=== PATIENT | male | born 1975 | race Caucasian/White ===

== ENCOUNTER 2017-05-20 12:53 | Emergency (ER) | payer OTHER ==
--- NOTE | 2017-05-20 13:24 | ER Document Report ---
ED Medical Screen (RME) - General Chief Complaint: Chest Pain Stated Complaint: BLOOD PRESSURE CONCERNS Time Seen by Provider: 05/20/17 13:22 Notes: Patient states that he woke up this morning with chest pain. It is left-sided. It has been constant. He states he went to urgent care and they did some EKGs and referred him here to the emergency department. He states he has no previous history of heart disease. No significant family history. He states he does not smoke. He does not have diabetes. Patient has never had a previous cardiac evaluation. He did take 3 aspirin today. TRAVEL OUTSIDE OF THE [place] IN LAST 30 DAYS: No - Related Data Allergies/Adverse Reactions: amoxicillin Allergy (Verified 05/20/17 12:59) Past Medical History - Social History Chew tobacco use (# tins/day): No Frequency of alcohol use: None Drug Abuse: None Pulmonary Medical History: Reports: Hx Asthma Renal/ Medical History: Denies: Hx Peritoneal Dialysis Physical Exam - Vital signs Vitals: Temp Pulse Resp BP Pulse Ox 97.9 F 81 20 159/104 H 99 05/20/17 12:59 05/20/17 12:59 05/20/17 12:59 05/20/17 12:59 05/20/17 12:59 Course - Vital Signs Vital signs: Temp Pulse Resp BP Pulse Ox 97.9 F 81 20 159/104 H 99 05/20/17 12:59 05/20/17 12:59 05/20/17 12:59 05/20/17 12:59 05/20/17 12:59
[2017-05-20 13:55] LABS: ABSOLUTE EOSINOPHILS # (AUTO) 0.2 10^3/uL (0.0-0.6); ABSOLUTE LYMPHOCYTES (AUTO) 1.7 10^3/uL (0.5-4.7); ABSOLUTE MONOCYTES (AUTO) 0.5 10^3/uL (0.1-1.4); ABSOLUTE NEUT (AUTO) 5.4 10^3/uL (1.7-8.2); BASOPHILS % (AUTO) 0.4 % (0-2); HEMATOCRIT 40.7 % (37.9-51.0); HEMOGLOBIN 14.3 g/dL (13.5-17.0); HGB HCT DIFFERENCE 2.2; LYMPHOCYTES % (AUTO) 21.1 % (13-45); MEAN CORPUSCULAR HEMOGLOBIN 32.5 pg (27.0-33.4); MEAN CORPUSCULAR HGB CONC 35.1 g/dL (32.0-36.0); MEAN CORPUSCULAR VOLUME 93 fl (80-97); MONOCYTES % (AUTO) 6.3 % (3-13); RED CELL DISTRIBUTION WIDTH 13.1 % (11.5-14.0); SEGMENTED NEUTROPHILS % (AUTO) 69.2 % (42-78); WHITE BLOOD COUNT 7.9 10^3/uL (4.0-10.5)
[2017-05-20 14:07] LABS: ALANINE AMINOTRANSFERASE 18 U/L (21-72); ALBUMIN 4.2 g/dL (3.5-5.0); ALKALINE PHOSPHATASE 72 U/L (38-126); ANION GAP 13 (5-19); ASPARTATE AMINO TRANSFERASE 15 U/L (17-59); BILIRUBIN,DIRECT 0.3 mg/dL (0.0-0.4); BILIRUBIN,TOTAL 0.8 mg/dL (0.2-1.3); BLOOD UREA NITROGEN 15 mg/dL (7-20); CARBON DIOXIDE 27 mmol/L (22-30); CHLORIDE 101 mmol/L (98-107); CREATININE RESULT 1.06 mg/dL (0.52-1.25); GLUCOSE 95 mg/dL (75-110); POTASSIUM 4.1 mmol/L (3.6-5.0); SODIUM 140.5 mmol/L (137-145); TOTAL PROTEIN 6.3 g/dL (6.3-8.2)
--- NOTE | 2017-05-20 14:43 | RADIOLOGY REPORT (SQ) ---
EXAM DESCRIPTION: CHEST PA/LAT COMPLETED DATE/TIME: 05/20/2017 2:29 pm REASON FOR STUDY: cp COMPARISON: None. EXAM PARAMETERS: NUMBER OF VIEWS: two views TECHNIQUE: Digital Frontal and Lateral radiographic views of the chest acquired. RADIATION DOSE: NA LIMITATIONS: none FINDINGS: LUNGS AND PLEURA: No opacities, masses or pneumothorax. No pleural effusion. MEDIASTINUM AND HILAR STRUCTURES: No masses or contour abnormalities. HEART AND VASCULAR STRUCTURES: Heart normal size. No evidence for failure. BONES: No acute findings. HARDWARE: None in the chest. OTHER: No other significant finding. IMPRESSION: NO SIGNIFICANT RADIOGRAPHIC FINDING IN THE CHEST. TECHNICAL DOCUMENTATION: JOB ID: [id number] [employer]- All Rights Reserved
[2017-05-20] MEDS ORDERED: IPRATROPIUM/ALBUTEROL 0.5-2.5 MG/3 ML AMPUL NEB ONE (14:51)
--- NOTE | 2017-05-20 15:44 | ER Document Report ---
ED Cardiac - General Chief Complaint: Chest Pain Stated Complaint: BLOOD PRESSURE CONCERNS Time Seen by Provider: 05/20/17 13:22 Mode of Arrival: Ambulatory Information source: Patient Notes: This 41-year-old male patient comes emergency room complaining of waking up with left anterior chest pain. He did take aspirin today. He states his blood pressure is running high due to stopping his blood pressure medication about 3 months ago. He reports the chest pain caused him to be short of breath and to perspire quite a bit. He did go to work and continued to suffer from the symptoms. His boss told him to go to the emergency room, he went to an urgent care where 2 EKGs were done and then he was referred to the emergency room. His blood pressure was elevated at the urgent care. When seen in the emergency room the patient reports his chest still feels tight. The patient's past history is significant for hypertension asthma, he does not smoke does not drink alcohol. TRAVEL OUTSIDE OF THE [place] IN LAST 30 DAYS: No - Related Data Allergies/Adverse Reactions: amoxicillin Allergy (Verified 05/20/17 12:59) Past Medical History - General Information source: Patient - Social History Smoking Status: Never Smoker Cigarette use (# per day): No Chew tobacco use (# tins/day): No Smoking Education Provided: No Frequency of alcohol use: None Drug Abuse: None Lives with: Other - Patient is from [facility], here working on a base contract Family History: CAD - Patient's paternal grandfather had heart problems in his early 70s and at 89, COPD - Patient's father has COPD, CVA - Patient's paternal grandmother at age 65 following multiple mini strokes, Hypertension - Patient's father had high blood pressure, Malignancy - Patient's maternal grandfather of cancer, Other - Patient's parents are alive, father has high blood pressure and COPD and is 63 years old but does not have coronary artery disease history - Past Medical History Cardiac Medical History: Reports: Hx Hypertension Pulmonary Medical History: Reports: Hx Asthma EENT Medical History: Reports: None Neurological Medical History: Reports: None Endocrine Medical History: Reports: None Renal/ Medical History: Reports: None GI Medical History: Reports: None Musculoskeltal Medical History: Reports None Skin Medical History: Reports None Psychiatric Medical History: Reports: None Past Surgical History: Reports: Hx Orthopedic Surgery - Right ankle was pinned, left thumb had some surgical procedure Review of Systems - Review of Systems Constitutional: No symptoms reported EENT: No symptoms reported Cardiovascular: See HPI Respiratory: See HPI Gastrointestinal: No symptoms reported Genitourinary: No symptoms reported Musculoskeletal: No symptoms reported Skin: No symptoms reported Hematologic/Lymphatic: No symptoms reported Neurological/Psychological: No symptoms reported Physical Exam - Vital signs Vitals: Temp Pulse Resp BP Pulse Ox 97.9 F 81 20 159/104 H 99 05/20/17 12:59 05/20/17 12:59 05/20/17 12:59 05/20/17 12:59 05/20/17 12:59 Interpretation: Hypertensive - General General appearance: Appears well, Alert, Anxious In distress: None - HEENT Head: Normocephalic, Atraumatic Eyes: Normal Pupils: PERRL Neck: Normal - Respiratory Respiratory status: No respiratory distress Chest status: Tender Breath sounds: Wheezing - There is some wheezes and rhonchi on forced cough Chest palpation: Tender - Very tender to palpate the left anterior chest wall reproducing the chief complaint - Cardiovascular Rhythm: Other Heart sounds: Normal auscultation Murmur: No - Abdominal Inspection: Normal Distension: Other Bowel sounds: Normal Tenderness: Nontender - Back Back: Normal - Extremities General upper extremity: Normal inspection General lower extremity: Normal inspection - Neurological Neuro grossly intact: Yes - Psychological Associated symptoms: Normal affect, Normal mood - Skin Skin Temperature: Warm Skin Moisture: Dry Skin Color: Normal Course - Re-evaluation Re-evalutation: 05/20/17 15:50 When going over the patient's work and possible etiology for his pain, he reports he did do some heavy lifting over the weekend when he moved a couch. While I am trying to review his lab work and other findings with him, he is playing games on his cell phone and has the TV on quite loud. Lungs does not really sound different after breathing treatment, he states he still feels tightness in his chest. - Vital Signs Vital signs: Temp Pulse Resp BP Pulse Ox 97.9 F 81 20 159/104 H 99 05/20/17 12:59 05/20/17 12:59 05/20/17 12:59 05/20/17 12:59 05/20/17 12:59 - Laboratory Result Diagrams: 05/20/17 13:40 05/20/17 13:40 Laboratory results interpreted by me: 05/20/17 13:40 AST 15 L ALT 18 L - Diagnostic Test Radiology reviewed: Image reviewed, Reports reviewed - Chest x-ray is unremarkable - EKG Interpretation by Me EKG shows normal: Sinus rhythm, [place], Intervals, QRS Complexes, ST-T Waves Rate: Normal - 74 Rhythm: NSR P Waves: LAE Discharge - Discharge Clinical Impression: Anterior chest wall pain High blood pressure Qualifiers: Hypertension type: essential hypertension Qualified Code(s): I10 - Essential ( primary) hypertension Condition: Stable Disposition: HOME, SELF-CARE Additional Instructions: Chest Wall Pain: Your chest pain has been diagnosed as PROBABLY coming from the chest wall. This is often caused by straining the muscles or joints in the chest during physical activity, direct trauma, coughing, or vigorous vomiting. Persons with arthritis are especially prone to this type of pain, due to inflammation of the cartilage joints near the breast bone. Occasionally, no cause can be found. Rest from strenuous physical activity. This kind of chest pain is usually made worse by movement of the chest. Depending on the symptoms, we may recommend medicine for pain and antiinflammatory effects. If the pain is new, and seems to be due to muscle strain, cold packs can help. Otherwise, apply gentle warmth to the painful area for 15 minutes every hour or two. You should contact the doctor immediately if things change. Further evaluation is needed if you develop a fever or cough, if the nature of the pain changes, or if you become short of breath. High Blood Pressure: When your blood pressure was taken today it was elevated. Hypertension: The patient has been informed that he has Hypertension based on a blood pressure reading in the emergency department. Sometimes, stress or illness causes a temporary elevation of your blood pressure. We suggest that you get your blood pressure measured three more times during the next few days to see if this is more than a temporary abnormality. If your blood pressure is greater than 150/90 on each occasion, you must have treatment. Some simple things you can do to help are: If you have blood pressure medicine but aren't using it regularly, start taking it again. Get some aerobic exercise for at least 20 minutes on a daily basis. (See your doctor before beginning a new exercise program.) Eat a low-fat diet. Lose excess weight. Avoid salty foods and avoid adding salt to any of the foods you eat. Avoid diet pills, decongestants, "energizing" herbs, and other medicines that elevate blood pressure. If left untreated, hypertension greatly enhances your risk for developing heart disease and strokes. Please don't ignore this problem. Chest Pain of Unclear Cause: The exact cause of your chest pain isn't clear. Fortunately, there is no evidence of a dangerous medical condition. Further testing may be required to find the source of the pain. Most often, we find that this pain is coming from the chest wall -- the muscles or rib joints in the chest. But chest pain can come from the lung and lung lining, the esophagus, the heart valves or heart lining, and even the stomach or gallbladder. Rest. Eat lightly until the pain is gone. We may prescribe medicine for pain and inflammation. You should call the physician immediately if the pain radiates to the shoulder, jaw or arms; if you start to run a fever or develop a cough; or if you develop shortness of breath, or other new or alarming symptoms. TAKE THE MEDICATION PRESCRIBED FOR YOUR ELEVATED BLOOD PRESSURE. TAKE IBUPROFEN OR ALEVE FOR CHEST WALL PAIN. REST AND AVOID LIFTING OR STRAINING MUCH POSSIBLE. FOLLOW UP WITH YOUR DOCTOR WHEN YOU RETURN HOME TO MONITOR AND TREAT YOUR ELEVATED BLOOD PRESSURE. RETURN TO THE EMERGENCY ROOM IF ANY NEW OR WORSENING SYMPTOMS. Prescriptions: Lisinopril 20 mg PO DAILY #30 tablet
[2017-05-20 16:33] VITALS: BP 140/93
--- NOTE | 2017-05-20 23:21 | EKG REPORT ---
SEVERITY:- BORDERLINE ECG - SINUS RHYTHM PROBABLE LEFT ATRIAL ABNORMALITY : Confirmed by: Pako Rios 20-May-2017 23:20:45
== END 2017-05-20 16:33 | disposition home or self-care (01) ==
LOC: ER 12:53
DX: R07.89 Other chest pain (principal); I10 Essential (primary) hypertension; R06.02 Shortness of breath; R61 Generalized hyperhidrosis; J45.909 Unspecified asthma, uncomplicated; Z82.49 Family history of ischemic heart disease and other diseases of the circulatory system
CPT/HCPCS: 93005; 94640; 99285; 36415; 85025; 80053; 84484; 85379; 71020; 93010; J7620

== ENCOUNTER 2017-06-24 08:42 | Emergency (ER) | payer SELFPAY ==
--- NOTE | 2017-06-24 09:21 | ER Document Report ---
ED Cardiac - General Chief Complaint: Chest Pain Stated Complaint: COUGH,DIZZINESS Time Seen by Provider: 06/24/17 09:20 Mode of Arrival: Ambulatory Information source: Patient TRAVEL OUTSIDE OF THE [place] IN LAST 30 DAYS: No - HPI Patient complains to provider of: Chest pain, Other - COUGH Use of: denies: Alcohol, Amphetamines, Bath salts, Cocaine, Decongestants Was the onset of pain: Gradual When did pain begin: 1 MONTH AGO Is the pain a: Chronic problem Chest pain location: Other - STERNAL Quality of pain: Other - SORENESS Chest pain radiation location: None Severity now: Mild Severity at worst: Moderate Chest pain precipitating factors: Coughing Cardiac risk factors: Hypertension. denies: Diabetes, Smoker, Dyslipidemia, Hx ME Positive cardiac history: No Associated symptoms: denies: Back pain, Diaphoresis, Nausea/vomiting, Shortness of breath, Syncope Exacerbated by: Coughing, Lying flat Relieved by: Nothing Similar symptoms previously: No Recently seen / treated by doctor: Yes - 1 MONTH AGO, BEGUN ON LISINOPRIL FOR HIGH BP. - Related Data Allergies/Adverse Reactions: amoxicillin Allergy (Verified 06/24/17 08:50) Past Medical History - General Information source: Patient - Social History Smoking Status: Never Smoker Cigarette use (# per day): No Chew tobacco use (# tins/day): No Frequency of alcohol use: None Drug Abuse: None Lives with: Family Family History: CAD - Patient's paternal grandfather had heart problems in his early 70s and at 89, COPD - Patient's father has COPD, CVA - Patient's paternal grandmother at age 65 following multiple mini strokes, Hypertension - Patient's father had high blood pressure, Malignancy - Patient's maternal grandfather of cancer, Other - Patient's parents are alive, father has high blood pressure and COPD and is 63 years old but does not have coronary artery disease history Patient has suicidal ideation: No - Past Medical History Cardiac Medical History: Reports: Hx Hypertension Pulmonary Medical History: Reports: Hx Asthma Renal/ Medical History: Denies: Hx Peritoneal Dialysis Past Surgical History: Reports: Hx Orthopedic Surgery - Right ankle was pinned, left thumb had some surgical procedure Review of Systems - Review of Systems Constitutional: No symptoms reported. denies: Chills, Fever EENT: No symptoms reported Cardiovascular: See HPI, Chest pain. denies: Orthopnea, Dyspnea, Syncope Respiratory: See HPI, Cough Gastrointestinal: No symptoms reported Genitourinary: No symptoms reported Musculoskeletal: No symptoms reported Skin: No symptoms reported Neurological/Psychological: No symptoms reported Physical Exam - Vital signs Vitals: Temp Pulse Resp BP Pulse Ox 98.9 F 84 16 152/94 H 99 06/24/17 08:51 06/24/17 08:51 06/24/17 08:51 06/24/17 08:51 06/24/17 08:51 Interpretation: Hypertensive. No: Tachycardic, Hypoxic, Tachypneic, Febrile - General General appearance: Appears well, Alert In distress: None - HEENT Head: Normocephalic Eyes: Normal Conjunctiva: Normal Ears: Normal Nasal: Normal Mouth/Lips: Normal Mucous membranes: Normal - Respiratory Respiratory status: No respiratory distress Chest status: Nontender Breath sounds: Normal - Cardiovascular Rhythm: Regular Heart sounds: Normal auscultation Murmur: No - Abdominal Inspection: Normal Distension: No distension Bowel sounds: Normal - Back Back: Normal - Extremities General upper extremity: Normal inspection General lower extremity: Normal inspection. No: Edema - Neurological Neuro grossly intact: Yes Cognition: Normal Orientation: AAOx4 - Psychological Associated symptoms: Normal affect, Normal mood - Skin Skin Temperature: Warm Skin Moisture: Dry Skin Color: Normal Skin Turgor: Elastic Course - Vital Signs Vital signs: Temp Pulse Resp BP Pulse Ox 98.9 F 84 21 H 142/93 H 100 06/24/17 08:51 06/24/17 08:51 06/24/17 10:32 06/24/17 10:32 06/24/17 10:32 - Laboratory Result Diagrams: 06/24/17 09:35 06/24/17 09:35 Laboratory results interpreted by me: 06/24/17 09:35 Creatine Kinase 49 L Discharge - Discharge Clinical Impression: Cough due to ROBB inhibitor, Chest wall pain, Essential hypertension Condition: Stable Disposition: HOME, SELF-CARE Instructions: Calcium Channel Blockers ([facility]), Chest Wall Pain ([facility]) Additional Instructions: YOUR COUGH IS LIKELY DUE TO THE LISINOPRIL. YOU SHOULD STOP TAKING IT AND TAKE SOMETHING ELSE TO CONTROL YOUR BLOOD PRESSURE. YOU HAVE BEEN STARTED ON AMLODIPINE FOR BLOOD PRESSURE CONTROL. TAKE IT DIRECTED. FOLLOW UP WITH YOUR PRIMARY CARE PROVIDER FOR BLOOD PRESSURE RE-CHECK WITHIN 1 WEEK, AND FOR REFILLS OF YOUR AMLODIPINE WHEN NEEDED. RETURN TO E.R. IF PROBLEMS. Prescriptions: Amlodipine Besylate 5 mg PO DAILY #30 tab
[2017-06-24] MEDS ORDERED: AMLODIPINE BESYLATE 5 MG TABLET PO ONE (09:46)
[2017-06-24 09:57] LABS: ABSOLUTE EOSINOPHILS # (AUTO) 0.3 10^3/uL (0.0-0.6); ABSOLUTE LYMPHOCYTES (AUTO) 1.4 10^3/uL (0.5-4.7); ABSOLUTE MONOCYTES (AUTO) 0.5 10^3/uL (0.1-1.4); ABSOLUTE NEUT (AUTO) 4.8 10^3/uL (1.7-8.2); BASOPHILS % (AUTO) 0.5 % (0-2); HEMATOCRIT 41.2 % (37.9-51.0); HEMOGLOBIN 14.8 g/dL (13.5-17.0); HGB HCT DIFFERENCE 3.2; LYMPHOCYTES % (AUTO) 19.6 % (13-45); MEAN CORPUSCULAR HEMOGLOBIN 32.8 pg (27.0-33.4); MEAN CORPUSCULAR VOLUME 91 fl (80-97); MONOCYTES % (AUTO) 6.8 % (3-13); RED BLOOD COUNT 4.52 10^6/uL (4.35-5.55); RED CELL DISTRIBUTION WIDTH 12.6 % (11.5-14.0); SEGMENTED NEUTROPHILS % (AUTO) 69.1 % (42-78)
[2017-06-24 10:12] LABS: APPEARANCE,URINE CLEAR; BILIRUBIN,URINE NEGATIVE (NEGATIVE); GLUCOSE, URINE NEGATIVE (NEGATIVE); KETONES,URINE NEGATIVE (NEGATIVE); LEUKOCYTE ESTERASE,URINE NEGATIVE (NEGATIVE); NITRITE,URINE NEGATIVE (NEGATIVE); PROTEIN,URINE NEGATIVE (NEGATIVE); URINE SPECIFIC GRAVITY 1.008; UROBILINOGEN,URINE NEGATIVE mg/dL (<2.0)
[2017-06-24 10:16] LABS: ALANINE AMINOTRANSFERASE 23 U/L (21-72); ALBUMIN 4.1 g/dL (3.5-5.0); ALKALINE PHOSPHATASE 72 U/L (38-126); ANION GAP 7 (5-19); ASPARTATE AMINO TRANSFERASE 17 U/L (17-59); BILIRUBIN,DIRECT 0.3 mg/dL (0.0-0.4); BILIRUBIN,TOTAL 0.6 mg/dL (0.2-1.3); BLOOD UREA NITROGEN 15 mg/dL (7-20); CALCIUM 9.4 mg/dL (8.4-10.2); CARBON DIOXIDE 30 mmol/L (22-30); CHLORIDE 104 mmol/L (98-107); CREATINE KINASE 49 U/L (55-170); CREATININE RESULT 1.04 mg/dL (0.52-1.25); GLUCOSE 94 mg/dL (75-110); POTASSIUM 4.3 mmol/L (3.6-5.0); SODIUM 141.2 mmol/L (137-145); TOTAL PROTEIN 6.6 g/dL (6.3-8.2)
--- NOTE | 2017-06-24 10:22 | RADIOLOGY REPORT (SQ) ---
EXAM DESCRIPTION: CHEST PA/LAT COMPLETED DATE/TIME: 06/24/2017 10:08 am REASON FOR STUDY: COUGH, CHEST PAIN COMPARISON: 05/20/2017 EXAM PARAMETERS: NUMBER OF VIEWS: two views TECHNIQUE: Digital Frontal and Lateral radiographic views of the chest acquired. RADIATION DOSE: NA LIMITATIONS: none FINDINGS: LUNGS AND PLEURA: No opacities, masses or pneumothorax. No pleural effusion. MEDIASTINUM AND HILAR STRUCTURES: No masses or contour abnormalities. HEART AND VASCULAR STRUCTURES: Heart normal size. No evidence for failure. BONES: No acute findings. HARDWARE: None in the chest. OTHER: No other significant finding. IMPRESSION: NO SIGNIFICANT RADIOGRAPHIC FINDING IN THE CHEST. TECHNICAL DOCUMENTATION: JOB ID: [id number] [employer]- All Rights Reserved
[2017-06-24 10:28] LABS: CREATINE KINASE MB 0.69 ng/mL (<4.55)
[2017-06-24 10:38] LABS: TROPONIN I < 0.012 ng/mL
[2017-06-24 11:03] VITALS: BP 122/73
--- NOTE | 2017-06-24 14:36 | EKG REPORT ---
SEVERITY:- NORMAL ECG - SINUS RHYTHM : Confirmed by: Cassi Marshall MD 24-Jun-2017 14:35:34
== END 2017-06-24 11:06 | disposition home or self-care (01) ==
LOC: ER 08:42
DX: R05 Cough (principal); T46.4X5A Adverse effect of angiotensin-converting-enzyme inhibitors, initial encounter; R07.89 Other chest pain; I10 Essential (primary) hypertension; J45.909 Unspecified asthma, uncomplicated; Z88.0 Allergy status to penicillin; Z79.899 Other long term (current) drug therapy
CPT/HCPCS: 36415; 71020; 80053; 81001; 82550; 82553; 83880; 84484; 85025; 93005; 93010; 99285

== ENCOUNTER 2017-07-08 09:15 | Emergency (ER) | payer SELFPAY ==
[2017-07-08] MEDS ORDERED: IBUPROFEN 800 MG TABLET PO ONE (09:53)
--- NOTE | 2017-07-08 10:29 | ER Document Report ---
ED Extremity Problem, Lower - General Chief Complaint: Knee Injury Stated Complaint: LEFT KNEE PAIN Time Seen by Provider: 07/08/17 09:29 Mode of Arrival: Wheelchair Information source: Patient Notes: 41-year-old male presents to ED for left knee pain that started yesterday after he fell off a porch at home. He states he lives about 5 hours away but works at [employer] and drove here this morning to go to work but is unable to work. Patient complains of pain on the medial side of the joint and on the joint itself. TRAVEL OUTSIDE OF THE [place] IN LAST 30 DAYS: No - HPI Patient complains to provider of: Injury, Pain, Swelling Location: Knee - Left Occurred: Yesterday Where: Home, Outdoors Onset/Duration: Sudden, Persistent Quality of pain: Achy, Dull, Throbbing Severity: Moderate Pain Level: 4 Context: Fell Recent injury: Yes Associated symptoms: Painful ambulation, Unable to bear weight Exacerbated by: Hanging down, Movement - Pain with ambulation or weightbearing, Walking - Related Data Allergies/Adverse Reactions: amoxicillin Allergy (Verified 07/08/17 09:17) Past Medical History - General Information source: Patient - Social History Smoking Status: Never Smoker Cigarette use (# per day): No Chew tobacco use (# tins/day): Yes - States he dips Smoking Education Provided: Yes - 7 2 minutes Frequency of alcohol use: None Drug Abuse: None Occupation: Construction Lives with: Family Family History: CAD - Patient's paternal grandfather had heart problems in his early 70s and at 89, COPD - Patient's father has COPD, CVA - Patient's paternal grandmother at age 65 following multiple mini strokes, Hypertension - Patient's father had high blood pressure, Malignancy - Patient's maternal grandfather of cancer, Other - Patient's parents are alive, father has high blood pressure and COPD and is 63 years old but does not have coronary artery disease history Patient has suicidal ideation: No - Past Medical History Cardiac Medical History: Reports: Hx Hypertension Pulmonary Medical History: Reports: Hx Asthma EENT Medical History: Reports: None Neurological Medical History: Reports: None Endocrine Medical History: Reports: None Renal/ Medical History: Reports: None Malignancy Medical History: Reports None GI Medical History: Reports: None Musculoskeltal Medical History: Reports Hx Musculoskeletal Deformity, Reports Hx Musculoskeletal Trauma Skin Medical History: Reports None Psychiatric Medical History: Reports: None Traumatic Medical History: Reports: Hx Fractures - Ankle Infectious Medical History: Reports: None Past Surgical History: Reports: Hx Orthopedic Surgery - Right ankle was pinned, left thumb had some surgical procedure Review of Systems - Review of Systems Constitutional: No symptoms reported EENT: No symptoms reported Cardiovascular: No symptoms reported Respiratory: No symptoms reported Gastrointestinal: No symptoms reported Genitourinary: No symptoms reported Male Genitourinary: No symptoms reported Musculoskeletal: Joint pain, Joint swelling, Muscle stiffness, Other - Left knee pain swelling and injury Skin: No symptoms reported Hematologic/Lymphatic: No symptoms reported Neurological/Psychological: No symptoms reported Physical Exam - Vital signs Vitals: Temp Pulse BP Pulse Ox 99.0 F 116 H 151/99 H 99 07/08/17 09:19 07/08/17 09:19 07/08/17 09:19 07/08/17 09:19 Interpretation: Normal - General General appearance: Appears well, Alert - HEENT Head: Normocephalic, Atraumatic Eyes: Normal Pupils: PERRL - Respiratory Respiratory status: No respiratory distress Chest status: Nontender Breath sounds: Normal Chest palpation: Normal - Cardiovascular Rhythm: Regular Heart sounds: Normal auscultation Murmur: No - Abdominal Inspection: Normal Distension: No distension Bowel sounds: Normal Tenderness: Nontender Organomegaly: No organomegaly - Back Back: Normal, Nontender - Extremities General upper extremity: Normal inspection, Nontender, Normal color, Normal ROM , Normal temperature General lower extremity: Normal temperature. No: Shy's sign Knee: Tender, Ecchymosis, Pain with ROM, Patellar tendon intact, Tender joint line. No: Abrasion, Deformity, Dislocation, Drawer's test instability, Instability, Laceration, Laxity with valgus stress, Laxity with varus stress, Popliteal fossa tender, Unable to bear weight - Neurological Neuro grossly intact: Yes Cognition: Normal Orientation: AAOx4 [place] Coma Scale Eye Opening: Spontaneous [place] Coma Scale Verbal: Oriented [place] Coma Scale Motor: Obeys Commands [place] Coma Scale Total: 15 Speech: Normal Motor strength normal: LUE, RUE, LLE, RLE Sensory: Normal - Psychological Associated symptoms: Normal affect, Normal mood - Skin Skin Temperature: Warm Skin Moisture: Dry Skin Color: Normal Course - Re-evaluation Re-evalutation: 07/08/17 20:03 X-rays discussed with patient and with Dr. Thomas. Doctor recommended a knee immobilizer and crutches and follow-up with orthopedics as there is no definite fracture but a possible fracture to the knee patient able to ambulate full range of motion with some discomfort. - Vital Signs Vital signs: Temp Pulse Resp BP Pulse Ox 98.4 F 89 18 153/92 H 99 07/08/17 12:01 07/08/17 12:01 07/08/17 12:01 07/08/17 12:01 07/08/17 12:01 - Diagnostic Test Radiology reviewed: Image reviewed, Reports reviewed Procedures - Immobilization Left Knee Immobilizer type: Crutches, Knee immobilizer Performed by: PCT Post-Proc Neuro Vasc Exam: Normal Alignment checked and good: Yes Discharge - Discharge Clinical Impression: degenerative changes to left knee Left knee pain Qualifiers: Chronicity: acute Qualified Code(s): M25.562 - Pain in left knee Condition: Stable Disposition: HOME, SELF-CARE Instructions: Family Physicians / Practices Additional Instructions: SUSPECTED INTERNAL KNEE INJURY: The examiner of your injured knee suspects an internal injury to the cartilage or internal ligaments. This must be further investigated by an operations and maintenance specialist. The knee should be protected, ice packed, and elevated while awaiting your follow-up exam by the orthopedist. If there is severe swelling, severe pain, or any new symptoms while awaiting your exam, you should call the orthopedist. (If he/she is unavailable, call us or return for re-examination.) KNEE IMMOBILIZING SPLINT: The knee immobilizing splint will protect the injury while healing begins. This type of splint does not allow the knee to bend at all. No running or sports will be possible. If the splint allows painfree walking, it's giving adequate protection. If there is still significant pain, crutches may be needed as well. Don't do anything that hurts. Adjusted the splint, if necessary. The stiffeners on the sides are attached with Velcro, so they can be easily moved to adjust for thigh and calf size. If you need help with these adjustments, come back. You will lose muscle strength in the thigh while using this splint. The doctor will advise you if it's safe to do isometric knee exercises while you use it. USE OF CRUTCHES: The doctor has recommended that you not bear weight at this time. You will need to use crutches. Adjust the crutches so the tops come to about two inches under the armpit while you are standing upright. Use your hands -- not your armpits -- to support your weight. To get into a chair, support yourself with one crutch on the injured side. Hold the chair with the other hand, then lower yourself while putting all your weight on the good leg. Going up stairs is `good leg up, step up, then bring up crutches and bad leg.' Down stairs is `bad leg and crutches down, then bring good leg down.' If you develop numbness or swelling in an arm or hand, you are using the crutches incorrectly. Return if you are having any problems with the crutches. ICE & ELEVATION: Apply ice packs frequently against the painful area. Many different schedules are recommended, such as "20 minutes on, 20 minutes off" or "one hour ice, two hours rest." If you need to work, you may need to go longer between ice treatments. You should plan to have the area ice packed AT LEAST one- fourth of the time. The ice should be applied over the wrap, tape, or splint, or over a layer of cloth -- not directly against the skin. Some ice bags have a built-in cloth and can be put directly on the skin. Your injured part should be elevated as much as possible over the next 48 hours. Try to keep the injury above the level of the heart. Avoid use of the injured area. Elevation and rest will decrease the swelling. USE OF IUAH-KTK-EYXCOFR IBUPROFEN: Ibuprofen (Advil, Nuprin, Medipren, Motrin IB) is a medication for fever and pain control. In addition, it has anti- inflammatory effects which may be beneficial, especially in the treatment of injuries. It's best to take ibuprofen with food. Persons with ulcer disease or allergy to aspirin should notify their physician of this before taking ibuprofen. Ibuprofen can be given every four to six hours, for a total of four doses daily. Age Pain or fever dose Antiinflammatory dose 6-8 yr 200 mg (1 tab) 200 mg (1 tab) 9-11 yr 200 mg (1 tab) 200-400 mg (1-2 tab) 11-14 yr 200-400 mg (1-2 tab) 400 mg (2 tab) 15-adult 400 mg (2 tab) 600 mg (3 tab) ORAL NARCOTIC MEDICATION: You have been given a [place] dispense pack for pain control. This medication is a narcotic. It's best taken with food, as nausea can result if taken on an empty stomach. Don't operate machinery or drive within six hours of taking this medication. Do not combine this medicine with alcohol, or with any medication which can cause sedation (such as cold tablets or sleeping pills) unless you get permission from the physician. Narcotics tend to cause constipation. If possible, drink plenty of fluids and eat a diet high in fiber and fruits. Please be aware that prescription narcotics also have the potential for abuse. People become addicted to these medications because of the general sense of wellbeing that they induce. This feeling along with a significant reduction in tension, anxiety, and aggression provides a stimulating seductive quality to these drugs. Once your pain is under control, we encourage you to discard your unused narcotics. FOLLOW-UP CARE: If you have been referred to a physician for follow-up care, call the physician s office for an appointment as you were instructed or within the next two days. If you experience worsening or a significant change in your symptoms, notify the physician immediately or return to the Emergency Department at any time for re-evaluation. Prescriptions: Ibuprofen 600 mg PO Q8HP PRN #20 tablet PRN Reason: Forms: Elevated Blood Pressure, Return to Work Referrals: JOURDAN SOLIMAN DO [ACTIVE STAFF] - Follow up as needed
--- NOTE | 2017-07-08 11:16 | RADIOLOGY REPORT (SQ) ---
EXAM DESCRIPTION: KNEE LEFT 4 VIEW COMPLETED DATE/TIME: 07/08/2017 10:55 am REASON FOR STUDY: pain swelling injury COMPARISON: None. NUMBER OF VIEWS: Four views. TECHNIQUE: AP, lateral, and both oblique radiographic images acquired of the left knee. LIMITATIONS: None. FINDINGS: MINERALIZATION: Normal. BONES: No acute fracture or dislocation. No worrisome bone lesions. JOINT: Small posterior spurs are present on the patella. SOFT TISSUES: No soft tissue swelling. No radio-opaque foreign body. OTHER: No other significant finding. IMPRESSION: Mild patellofemoral degenerative joint changes. TECHNICAL DOCUMENTATION: JOB ID: [id number]- All Rights Reserved
[2017-07-08] MEDS ORDERED: HYDROCODONE/ACETAMINOPHEN 5-325 MG 6 TAB/DSPK PO PRN (11:37)
[2017-07-08 12:02] VITALS: BP 153/92
== END 2017-07-08 12:16 | disposition home or self-care (01) ==
LOC: ER 09:15
DX: S80.02XA Contusion of left knee, initial encounter (principal); W17.89XA Other fall from one level to another, initial encounter; Y92.008 Other place in unspecified non-institutional (private) residence as the place of occurrence of the external cause; J45.909 Unspecified asthma, uncomplicated; M25.562 Pain in left knee; I10 Essential (primary) hypertension; Z72.0 Tobacco use; Z88.0 Allergy status to penicillin
CPT/HCPCS: 99283; 73562; L1830